=== PATIENT | male | born 1950 | race Two or more races ===

== ENCOUNTER → 2018-08-03 | Day surgery (SDC) | payer OTHER, MEDICARE ==
[~2018-08-03] MED LIST: AMLODIPINE BESYL5 MG PO; FENTANYL CITRATE/PF 100MCG/2 ML INJ ONE; FLOMAX0.4 MG PO; HYDROCHLOROTHIAZIDE PO; METOPROLOL SUCC50 MG PO; MIDAZOLAM HCL 2 MG/2 ML VIAL ONE; OR PHACO EYE KIT ONE; PREOP PHACO EYE KIT ONE; TESTOSTERO200 MG/1 M INJ
--- OUTSIDE RECORDS SUMMARY | 2018-08-03 08:44 | XMS REPORT ---
Author Author [facility] [place] Address Unknown Phone Unavailable Care Team Providers Care Teletypewriter Operator Name Role Phone Unavailable Unavailable Problems This patient has no known problems. Allergies, Adverse Reactions, Alerts This patient has no known allergies or adverse reactions. Medications This patient has no known medications. Encounters Start Date/Time End Date/Time Encounter Type Admission Type Attending Clinicians Care Facility Care Department Encounter ID 2018-05-26 14:13:13 2018-05-26 14:13:13 Outpatient [facility] [id number] 2018-04-23 00:00:00 2018-04-23 00:00:00 Outpatient [facility] [id number] 2018-04-10 20:08:25 2018-04-10 20:08:25 Outpatient [facility] [id number] 2018-04-10 20:03:54 2018-04-10 20:03:54 Outpatient [facility] [id number] 2018-04-10 11:31:15 2018-04-10 11:31:15 Outpatient [facility] [id number]
--- OUTSIDE RECORDS SUMMARY | 2018-08-03 08:44 | XMS REPORT | Clinical Summary ---
Author Author [facility] Organization [facility] Address Unknown Phone Unavailable Care Team Providers Care Interventional Neuroradiologist Name Role Phone Campbell Ascencio MD PCP Allergies Comments Active Allergy Reactions Severity Noted Date Felipe Inhibitors Swelling 04/10/2018 Medications No known medications Active Problems No known active problems Resolved Problems Problem Noted Date Resolved Date At risk for airway obstruction 04/10/2018 04/11/2018 Uvulitis 04/10/2018 04/11/2018 Pharyngotonsillitis 04/10/2018 04/11/2018 Cervical lymphadenopathy 04/10/2018 04/11/2018 Odynophagia 04/10/2018 04/11/2018 Angio-edema 04/11/2018 Encounters Care Team Description Date Type Specialty Campbell Ascencio MD Essential hypertension (Primary Dx); Elevated random blood glucose level: no history of diabetes, advised to follow up with pcp 05/26/2018 Office Visit Family Practice 05/26/2018 Travel Alan Pretty MD Bernstam, Elmer V, MD Angioedema, initial encounter (Primary Dx); Uvulitis; Pharyngotonsillitis; Cervical lymphadenopathy; Odynophagia 04/10/2018 Emergency - 04/11/2018 04/10/2018 Travel after 08/02/2017 Family History Medical History Relation Name Comments Diabetes Father Diabetes Mother Relation Name Status Comments Father Mother Social History Date Tobacco Use Types Packs/Day Years Used Never Smoker Smokeless Tobacco: Never Used Alcohol Use Drinks/Week oz/Week Comments Yes Sex Assigned at Date Recorded Not on file Industry Job Start Date Occupation Not on file Not on file Not on file Travel End Travel History Travel Start No recent travel history available. Last Filed Vital Signs Time Taken Vital Sign Reading 05/26/2018 2:13 PM PLATING TANK OPERATOR APPRENTICE Blood Pressure 109/62 05/26/2018 2:13 PM PLATING TANK OPERATOR APPRENTICE Pulse 76 05/26/2018 2:13 PM PLATING TANK OPERATOR APPRENTICE Temperature 36.9 C (98.4 F) 05/26/2018 2:13 PM PLATING TANK OPERATOR APPRENTICE Respiratory Rate 20 04/11/2018 7:15 PM PLATING TANK OPERATOR APPRENTICE Oxygen Saturation 97% - Inhaled Oxygen - Concentration 05/26/2018 2:13 PM PLATING TANK OPERATOR APPRENTICE Weight 112.1 kg (247 lb 3.2 oz) 05/26/2018 2:13 PM PLATING TANK OPERATOR APPRENTICE Height 190.5 cm (6' 3") 05/26/2018 2:13 PM PLATING TANK OPERATOR APPRENTICE Body Mass Index 30.9 Plan of Treatment Health Maintenance Due Date Last Done Comments Colorectal Cancer Scrn 2002 Annual (FIT/FOBT) Age 50 to 75 IMM Pneumococcal Age 65 2017 and Up IMM Influenza Seasonal 02/01/2018Feb to July (>/=19 yrs) Procedures Comments Procedure Name Priority Date/Time Associated Diagnosis RESP VIRAL SCREEN STAT 04/11/2018 11:50 AM PLATING TANK OPERATOR APPRENTICE INFUSION PUMP Routine 04/11/2018 11:21 AM PLATING TANK OPERATOR APPRENTICE PT/INR Routine 04/11/2018 4:23 AM PLATING TANK OPERATOR APPRENTICE MAGNESIUM Routine 04/11/2018 4:23 AM PLATING TANK OPERATOR APPRENTICE PHOSPHORUS Routine 04/11/2018 4:23 AM PLATING TANK OPERATOR APPRENTICE COMPREHENSIVE METABOLIC Routine 04/11/2018 PANEL(DBIL NOT INCLUDED) 4:23 AM PLATING TANK OPERATOR APPRENTICE CBC/DIFF Routine 04/11/2018 4:23 AM PLATING TANK OPERATOR APPRENTICE URINE DRUG SCREEN STAT 04/10/2018 10:47 PM PLATING TANK OPERATOR APPRENTICE THROAT CULTURE Routine 04/10/2018 10:18 PM PLATING TANK OPERATOR APPRENTICE GROUP A STREP SCREEN Routine 04/10/2018 10:18 PM PLATING TANK OPERATOR APPRENTICE CRP, HIGH SENS Routine 04/10/2018 9:41 PM PLATING TANK OPERATOR APPRENTICE SED RATE Routine 04/10/2018 9:41 PM PLATING TANK OPERATOR APPRENTICE 12 LEAD EKG Routine 04/10/2018 9:37 PM PLATING TANK OPERATOR APPRENTICE SEQUENTIAL COMPRESSION Routine 04/10/2018 PUMP 9:18 PM PLATING TANK OPERATOR APPRENTICE CT SOFT TISSUE NECK W Routine 04/10/2018 Uvulitis CONTRAST 8:23 PM PLATING TANK OPERATOR APPRENTICE Pharyngotonsillitis Cervical lymphadenopathy Odynophagia XRAY CHEST 2 VIEWS STAT 04/10/2018 Angioedema, initial 8:18 PM PLATING TANK OPERATOR APPRENTICE encounter SEQUENTIAL COMPRESSION Routine 04/10/2018 PUMP 6:39 PM PLATING TANK OPERATOR APPRENTICE BMP POC Routine 04/10/2018 11:35 AM PLATING TANK OPERATOR APPRENTICE CBC/DIFF STAT 04/10/2018 11:35 AM PLATING TANK OPERATOR APPRENTICE after 08/02/2017 Results * RESP VIRAL SCREEN (04/11/2018 11:50 AM PLATING TANK OPERATOR APPRENTICE) Spec Sputum [facility] Description MICROBIOLOGY Order Comments None [facility] MICROBIOLOGY Direct Exam Negative for Adenovirus [facility] MICROBIOLOGY Negative for Influenza A virus Negative for Influenza B virus Negative for Parainfluenza (1,2,3) virus Negative for Respiratory Syncytial virus Report Status Final 04/12/2018 [facility] MICROBIOLOGY Specimen Sputum - SPUTUM Performing Organization Address City/State/Zipcode Phone Number [facility] MICROBIOLOGY [facility] MICRO[facility]OLOG[facility] * COMPREHENSIVE METABOLIC PANEL(DBIL NOT INCLUDED) (04/11/2018 4:23 AM PLATING TANK OPERATOR APPRENTICE) Albumin 3.1 (L) 3.4 - 5.0 g/dL [facility]-ST[facility] 1 Calcium 8.3 (L) 8.50 - 10.20 mg/dL [facility] 1 CO2 24 21 - 32 mmol/L [facility] 1 Chloride 102 98 - 107 mmol/L [facility] MAIN-STATION 1 Creatinine 0.98 0.60 - 1.30 mg/dL [facility] MAIN-ST[facility] 1 Glucose 172 (H) 70 - 99 mg/dL [facility]IN-STATION 1 Alk Phos 44 (L) 45 - 117 U/L [facility] MAIN-ST[facility] 1 Potassium 3.5 3.50 - 5.10 mmol/L [facility]IN-STATION 1 Sodium 139 136 - 145 mmol/L [facility] 1 ALT 32 12 - 78 U/L [facility] 1 AST 17 15 - 37 U/L [facility] 1 Urea Nitrogen 19 (H) 7 - 18 mg/dL [facility] 1 T Bilirubin 0.4 0.2 - 1.0 mg/dL [facility]ST[facility] 1 T Protein 6.9 6.4 - 8.2 g/dL [facility] MA[facility] 1 GFR, Estimated >60 mL/min/1.73 m2 [facility] MAIN-[facility] 1 GFR, Estim, >60 mL/min/1.73 m2 [facility] Afr-Am MAIN-STATION 1 Anion Gap 13 [facility] 1 Specimen Blood Performing Organization Address [facility] Phone Number [facility]-STATION 1 * PT/INR (04/11/2018 4:23 AM PLATING TANK OPERATOR APPRENTICE) PT 13.6 11.8 - 15.0 Seconds [facility] MA[facility] 2 INR 1.1 [facility] SUGGESTED THERAPEUTIC RANGES: MAIN-STATION 2 INR 2.0-3.0 for MODERATE INTENSITY ANTICOAGULATION INR 2.5-3.5 for HIGH INTENSITY ANTICOAGULATION Specimen Blood Performing Organization Address [facility] Phone Number [facility] MA[facility]-STATION 2 * PHOSPHORUS (04/11/2018 4:23 AM PLATING TANK OPERATOR APPRENTICE) Phosphorus 1.9 (L) 2.5 - 4.9 mg/dL [facility] MA[facility] 1 Specimen Blood Performing Organization Address [facility] Phone Number [facility] MAIN-STATION 1 * MAGNESIUM (04/11/2018 4:23 AM PLATING TANK OPERATOR APPRENTICE) Magnesium 2.3 1.8 - 2.4 mg/dL [facility] MA[facility]ATION 1 Specimen Blood Performing Organization Address [facility] Phone Number [facility] MA[facility]ATION 1 * CBC/DIFF (04/11/2018 4:23 AM PLATING TANK OPERATOR APPRENTICE) Only the most recent of 2 results within the time period is included. WBC 7.4 4.5 - 12.0 K/uL [facility] 2 RBC 4.48 (L) 4.60 - 6.20 M/uL [facility] 2 Hemoglobin 13.9 (L) 14.0 - 18.0 g/dL [facility] 2 Hematocrit 43.0 40.0 - 54.0 % [facility] MA[facility] 2 MCV 96 (H) 82 - 92 fL [facility] 2 MCH 31.0 27.0 - 31.0 pg [facility] MA[facility] 2 MCHC 32.3 32.0 - 36.0 g/dL [facility] MA[facility] 2 RDW 49.3 (H) 35.1 - 43.9 fL [facility] 2 Platelet 210 150 - 400 K/uL [facility] 2 Mean Platelet 9.8 9.4 - 12.4 fL [facility] Volume MAIN[facility] 2 Percent NRBC 0.0 [facility] 2 Absolute NRBC 0.00 [facility] 2 Neutrophil 84.3 (H) 34.0 - 67.9 % [facility] 2 Lymphocyte 11.4 (L) 21.8 - 50.0 % [facility] 2 Monocyte 3.8 (L) 5.3 - 12.0 % [facility] 2 Eosinophil 0.0 (L) 0.8 - 5.0 % [facility] 2 Basophil 0.1 (L) 0.2 - 1.2 % [facility] 2 Pct Immat Gran 0.4 0.0 - 0.5 [facility] 2 Neutrophil, Abs 6.23 (H) 1.78 - 5.36 K/uL [facility] 2 Lymphocyte, Abs 0.84 (L) 1.32 - 3.57 K/uL [facility] 2 Monocyte, Abs 0.28 (L) 0.30 - 0.82 K/uL [facility] 2 Eosinophil, Abs 0.00 (L) 0.04 - 0.54 K/uL [facility] 2 Basophil, Abs 0.01 0.01 - 0.08 K/uL [facility] 2 Absol Immat 0.03 0.00 - 0.03 K/uL [facility] Gran [facility] 2 Specimen Blood Performing Organization Address City/State/Zipcode Phone Number [facility]YS [facility] MAIN-STATION 2 * URINE DRUG SCREEN (04/10/2018 10:47 PM PLATING TANK OPERATOR APPRENTICE) Amphetamine Negative [facility] Comment: MAIN-STATION 1 Calibrated Standard: D-Methamphetamine Positive if urine level >bq=2233 ng/mL Barbiturate Negative [facility] Comment: MAIN-STATION 1 Calibrated Standard: Secobarbital Positive if urine level is >vy=347 ng/mL Benzodiazepine Negative NE[facility] Comment: MAIN-STATION 1 Calibrated Standard: Lormethazepam Positive if urine level is >dw=070 ng/mL Cannabinoid Negative [facility] Comment: MAIN-STATION 1 Calibrated Standard: 11 nor-delta(9)-THC carboxylic a Positive if urine level >or=50 Cocaine Negative NE[facility] Comment: MAIN-STATION 1 Calibrated Standard: Benzoylecgonine Positive if urine level >bv=755 Opiate, Ur Negative [facility] Comment: MAIN[facility]STATION 1 Calibrated Standard: Morphine Positive if urine level >vi=550 PCP Negative [facility] Comment: MAIN-STATION 1 Calibrated Standard: Phencyclidine Positive if urine level >or=25 Urine Toxicology Screen results are to be used only for Medical purposes. Specimen Urine Performing Organization Address [facility] Phone Number [facility] MAIN-ST[facility] 1 * GROUP A STREP SCREEN (04/10/2018 10:18 PM PLATING TANK OPERATOR APPRENTICE) Group A Strep Negative NEG [facility] 2 Specimen Other (Specify in Comments) - THROAT Performing Organization Address [facility] Phone Number [facility] MA[facility] 2 * THROAT CULTURE (04/10/2018 10:18 PM PLATING TANK OPERATOR APPRENTICE) Spec Throat swab [facility] Description MICROBIOLOGY Order Comments None [facility] MICROBIOLOGY Culture Normal lynette, no Beta [facility] MICROBIOLOGY Streptococcus isolated Report Status Final 04/13/2018 [facility] MICROBIOLOGY Specimen Throat Performing Organization Address [facility] Phone Number [facility] MICROBIOLOGY [facility] MICROBIOLOGY * CRP, HIGH SENS (04/10/2018 9:41 PM PLATING TANK OPERATOR APPRENTICE) CRP, high sens 11.264 (H) <1.0 mg/dL [facility] MAIN-STATION 1 Specimen Blood Performing Organization Address [facility] Phone Number MISYS [facility] MAIN-STATION 1 * SED RATE (04/10/2018 9:41 PM PLATING TANK OPERATOR APPRENTICE) Sed Rate 31 (H) <20 mm/Hr [facility]IN[facility]ST[facility] 2 Specimen Blood Performing Organization Address [facility] Phone Number [facility] MAIN-ST[facility] 2 * 12 LEAD EKG (04/10/2018 9:37 PM PLATING TANK OPERATOR APPRENTICE) 12 LEAD EKG FOR [facility] Date:2018-04-10 Pat Name: CONNIE STORY Department: [id number] Room: Gender: M Drill Press Operator For Metal: [id number] :[id number] Requested By: OPAL MAGDALENO Order Number: [id number] Reading MD: Thierno TORRES Measurements Intervals [place] Rate: 88 P:70 [place]: 176 QRS: -20 QRSD: 101 T: -28 QT: 370 QTc:449 Interpretive Statements SINUS RHYTHM VOLTAGE CRITERIA FOR LVH MODERATE T-WAVE ABNORMALITY, CONSIDER ANTERIOR ISCHEMIA/INJURY/INFARCTION Suggest clinical correlation Abnormal ECG No prior ECG available for comparison Electronically Signed On 04-11-2018 8:14:56 PLATING TANK OPERATOR APPRENTICE by Thierno TORRES Performing Organization Address City/State/Zipcode Phone Number SMS * CT SOFT TISSUE NECK W CONTRAST (04/10/2018 8:23 PM PLATING TANK OPERATOR APPRENTICE) Impressions Performed At IMPRESSION: SMS Edema of the uvula. Mild submucosal edema adjacent to the posterior wall the supraglottic airway more prominent on the left. Asymmetric thickening in the left piriform sinus. Recommend direct inspection/anterior consultation. No pathologic-appearing cervical lymphadenopathy. Focal cortical dehiscence in the left anterior maxillary and the region of absent/ extracted teeth. Suggestion of a small thyroglossal duct remnant lesion. Signed By: Jelani Villasenor MD, 04/11/2018 10:18 AM Narrative Performed At EXAM: CT NECK WITH CONTRAST SMS DATE: 04/10/2018 8:25 PM INDICATION: Acute throat pain, uvula swelling TECHNIQUE: 2.5 mm contiguous axial postcontrast imaging was acquired from the level the orbits through the thoracic inlet. Coronal and sagittal reformatted images are provided. DLP: 770.6mGy-cm COMPARISON: None. DISCUSSION: Edema/swelling of the uvula. Mild submucosal edema adjacent to the posterior wall the supraglottic airway more prominent on the left. No peritonsillar or retropharyngeal collection. Asymmetric thickening along the left piriform sinus and at the base of the aryepiglottic fold. Focal lingual and buccal cortical dehiscence of the left maxillary and the region of absent/extracted lateral incisor/canine. Mild periapical lucency at the roots of the left central maxillary incisor. Mucosal thickening in the right maxillary sinus, otherwise the imaged portions of the paranasal sinuses and mastoid air cells are predominantly clear. No pathologically appearing cervical lymphadenopathy. Diffuse degenerative changes in the cervical spine and marked upper thoracic levoscoliosis. Imaged portions of the upper lungs are clear. Thyroid, parotid, and submandibular glands are unremarkable. Focal soft tissue thickening in the midline beneath the hyoid bone may relate to a thyroglossal duct remnant lesion. Procedure Note Interface, Rad/Mammog In - 04/11/2018 10:23 AM PLATING TANK OPERATOR APPRENTICE EXAM: CT NECK WITH CONTRAST DATE: 04/10/2018 8:25 PM INDICATION: Acute throat pain, uvula swelling TECHNIQUE: 2.5 mm contiguous axial postcontrast imaging was acquired from the level the orbits through the thoracic inlet. Coronal and sagittal reformatted images are provided. DLP: 770.6mGy-cm COMPARISON: None. DISCUSSION: Edema/swelling of the uvula. Mild submucosal edema adjacent to the posterior wall the supraglottic airway more prominent on the left. No peritonsillar or retropharyngeal collection. Asymmetric thickening along the left piriform sinus and at the base of the aryepiglottic fold. Focal lingual and buccal cortical dehiscence of the left maxillary and the region of absent/extracted lateral incisor/canine. Mild periapical lucency at the roots of the left central maxillary incisor. Mucosal thickening in the right maxillary sinus, otherwise the imaged portions of the paranasal sinuses and mastoid air cells are predominantly clear. No pathologically appearing cervical lymphadenopathy. Diffuse degenerative changes in the cervical spine and marked upper thoracic levoscoliosis. Imaged portions of the upper lungs are clear. Thyroid, parotid, and submandibular glands are unremarkable. Focal soft tissue thickening in the midline beneath the hyoid bone may relate to a thyroglossal duct remnant lesion. IMPRESSION IMPRESSION: Edema of the uvula. Mild submucosal edema adjacent to the posterior wall the supraglottic airway more prominent on the left. Asymmetric thickening in the left piriform sinus. Recommend direct inspection/anterior consultation. No pathologic-appearing cervical lymphadenopathy. Focal cortical dehiscence in the left anterior maxillary and the region of absent/ extracted teeth. Suggestion of a small thyroglossal duct remnant lesion. Signed By: Jelani Villasenor MD, 04/11/2018 10:18 AM Performing Organization Address City/State/Zipcode Phone Number SMS * XRAY CHEST 2 VIEWS (04/10/2018 8:18 PM PLATING TANK OPERATOR APPRENTICE) Impressions Performed At IMPRESSION: SMS No acute process in the chest. Marked dextroscoliosis involving the mid thoracic spine. Signed By: oTnya Messina MD, 04/10/2018 8:20 PM Narrative Performed At EXAM: XR CHEST 2 VIEWS [facility] DATE: 04/10/2018 8:19 PM . INDICATION: pneumonia COMPARISON: None TECHNIQUE:PAand lateral chest radiographs DISCUSSION: There is marked dextroscoliosis involving the mid thoracic spine. Lungs are clear with minimal atelectasis in the left lung base. No pleural effusions. No hilar adenopathy. The heart size is normal. No acute bony abnormality is identified. There is unfolding of the aortic arch. Procedure Note Interface, Rad/Mammog In - 04/10/2018 8:25 PM PLATING TANK OPERATOR APPRENTICE EXAM: XR CHEST 2 VIEWS DATE: 04/10/2018 8:19 PM . INDICATION: pneumonia COMPARISON: None TECHNIQUE: PA and lateral chest radiographs DISCUSSION: There is marked dextroscoliosis involving the mid thoracic spine. Lungs are clear with minimal atelectasis in the left lung base. No pleural effusions. No hilar adenopathy. The heart size is normal. No acute bony abnormality is identified. There is unfolding of the aortic arch. IMPRESSION IMPRESSION: No acute process in the chest. Marked dextroscoliosis involving the mid thoracic spine. Signed By: Tonya Messina MD, 04/10/2018 8:20 PM Performing Organization Address City/State/Zipcode Phone Number SMS * BMP POC (04/10/2018 11:35 AM PLATING TANK OPERATOR APPRENTICE) CO2 POC 31 21 - 32 mmol/L [facility] MAIN-[facility] 1 Chloride POC 97 (L) 98 - 107 mmol/L [facility] 1 Potassium POC 3.6 3.50 - 5.10 mmol/L [facility] MA[facility] 1 Sodium POC 143 136 - 145 mmol/L [facility] MA[facility] 1 Glucose POC 108 (H) 74 - 106 mg/dL [facility] MAIN-STATION 1 Urea Nitrogen 11 7 - 18 mg/dL [facility] POC MAIN-STATION 1 Creatinine POC 0.8 0.6 - 1.3 mg/dL [facility] MAIN-STATION 1 Calcium Ionized 1.15 1.15 - 1.29 mmol/L [facility] POC MAIN-STATION 1 Hemoglobin POC 16.3 14.0 - 18.0 g/dL [facility] MA[facility] 1 Hematocrit POC 48.0 40.0 - 54.0 % [facility] MAIN-STATION 1 GFR, Estimated >60 mL/min/1.73 m2 [facility] MAIN-STATION 1 GFR, Estim, >60 mL/min/1.73 m2 [facility] Afr-Am MAIN-STATION 1 Performing Organization Address City/State/Zipcode Phone Number [facility] 1 after 08/02/2017 Insurance Type Payer Benefit Subscriber ID Effective Phone Address Plan / Dates Group MEDICARE MEDICARE xxxxxxxxxxx 2017- [phone] [address] Present [id number] [place] [address] (Home) [place] [address] Advance Directives For more information, please contact: [address] [address] Date Inactivated Comments Code Status Date Activated 04/12/2018 12:01 AM Full Code 04/10/2018 5:49 PM
--- OUTSIDE RECORDS SUMMARY | 2018-08-03 08:44 | XMS REPORT ---
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 Completed 07/28/2017 diazepam 5 mg tablet Completed 06/09/2016 hydrochlorothiazide 25 mg tablet take 1 tablet once a day Active Not available hydrocodone 7.5 mg-acetaminophen 325 mg tablet Completed 06/09/2016 tamsulosin 0.4 mg capsule TAKE ONE CAPSULE ONCE A DAY Active Not available testosterone cypionate 200 mg/mL intramuscular oil Inject 1 mL every 2 weeks by intramuscular route for 90 days. 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 History Neck Pain Active 10/18/2015 History Lower Urinary Tract Symptoms Due to Benign Prostatic Hypertrophy Active 10/18/2015 History Procedures Date Name Performed by 08/11/2016 Electrocardiogram [facility] [address] [facility] [address] [place] [address] (Work Place) Notes: 10/24/2015: Repair navel hernia; Surgery Date: 2015 Inguinal Hernia repair; Surgery Date: 1979 Lab Results Date Name Specimen Result Interpretation Description Value Range Status Address 01/27/2017 Hepatitis C Virus RNA, Quant, PCR, Serum or Plasma Normal Hepatitis C Antibody non-reactive non-reactive [facility]: [address] Normal Signal to Cut-off 0.60 <1.00 [facility]: [address] [place] 01/27/2017 CBC W/ Auto Diff Wbc 4.53 x10*3/L 4.23-9.07 x10*3/L [facility]: [address] [place] Low Rbc 4.49 10*12/L 4.63-6.08 10*12/L [facility] [address] [facility] Hem[facility] 14.30 g/dL 13.70-17.50 g/dL [facility]: [address] [place] Hematocrit 42.8 % 40.1-51.0 % [facility] [address] [facility] Mcv 95.3 fL 80.0-100.0 fL [facility] [address] [facility] Mch 31.8 pg 25.7-32.2 pg [facility] [address] [facility] Mchc 33.4 g/dL 32.3-36.5 g/dL [facility]: [address] [place] High RDW-SD 46.5 fL 35.1-43.9 fL [facility] [address] [facility] Platelet Count 222.0 k/uL 163.0-337.0 k/uL [facility] [address] [facility] Mpv 10.5 fL 7.5-11.5 fL [facility] [address] [facility] Neut% 38.9 % 34.0-67.9 % [facility] [address] [facility] [facility] Lymph% 45.9 % 21.8-53.1 % [facility]: [address] [facility] Mon% 11.9 % 5.3-12.2 % [facility] [address] [facility] Eos% 2.9 % 0.8-7.0 % [facility] [address] [facility] [facility] Baso% 0.4 % 0.2-1.2 % [facility]: [address] [place] Neut# 1.8 x10*3/L 1.8-5.4 x10*3/L [facility]: [address] [place] Lymph# 2.1 x10*3/L 1.3-3.6 x10*3/L [facility]: [address] [facility] [place] Mon# 0.5 x10*3/L 0.3-0.8 x10*3/L [facility]: [address] Peters [facility] [place] Eos# 0.13 x10*3/L 0.04-0.54 x10*3/L [facility]: [address] [facility] [place] Baso# 0.02 x10*3/L 0.01-0.08 x10*3/L [facility] [address] [facility] 01/27/2017 CMP, Serum or Plasma Alt 27 U/L 0-55 U/L [facility]: [address] Ast 19 U/L 5-34 U/L [facility]: [address] Bun 12.8 mg/dL 8.4-25.7 mg/dL [facility]: [address] Alk Phos 43 unit/L 40-150 unit/L [facility]: [address] Glucose 96 mg/dL 70-99 mg/dL [facility]: [address] Albumin 3.8 g/dL 3.5-5.0 g/dL [facility]: [address] Creatinine 0.81 mg/dL 0.72-1.25 mg/dL [facility]: [address] eGFR Non- >60 mL/min/1.73m2 >60 mL/min/1.73m2 [facility]: [address] Total Bilirubin 0.4 mg/dL 0.2-1.2 mg/dL [facility]: [address] eGFR - >60 mL/min/1.73m2 >60 mL/min/1.73m2 [facility]: [address] [place] [address], [place] Sodium 143 mEq/L 136-145 mEq/L [facility]: [address] Potassium 3.9 mEq/L 3.5-5.1 mEq/L [facility]: [address] [place] [address], [place] Chloride 105 mmol/L 98-107 mmol/L [facility]: [address] [place] [address], [place] Total Protein 7.2 g/dL 6.4-8.3 g/dL [facility]: [address] Calcium 9.1 mg/dL 8.8-10.0 mg/dL [facility]: [address] Co2 26.0 mmol/L 23.0-31.0 mmol/L [facility]: [address] Anion Gap 12 calc [facility]: [address] [place] [address], [place] 01/27/2017 Lipid Panel, Serum Low Hdl 38 mg/dL 40-60 mg/dL [facility]: [address] Triglyceride 46 mg/dL 0-149 mg/dL [facility]: [address] VLDL Calc. 9 mg/dL [facility]: [address] cholesterol/HDL Ratio 4.2 mg/dL [facility]: [address] non-HDL Cholesterol Calc. 121 mg/dL 0-160 mg/dL [facility]: [address] Cholesterol 159 mg/dL 0-199 mg/dL [facility]: [address] LDL Calc. 112 mg/dL 0-130 mg/dL [facility]: [address] [place] [address], [place] 01/27/2017 T4, Free, Serum T4 Free 0.97 NG/dL 0.70-1.48 NG/dL [facility]: [address] 01/27/2017 TSH, Serum or Plasma Tsh 0.756 uIU/mL 0.350-4.940 uIU/mL [facility]: [address] [place] [address], [place] 01/27/2017 PSA, Serum or Plasma PSA, Total 3.93 NG/mL <4.00 NG/mL [facility]: [address] [place] [address], [place] 01/27/2017 Testosterone, Total, Serum Low Testosterone, Total 220.00 NG/dL 220.91-715.81 NG/dL [facility]: [address] [place] [address], [place] 08/13/2016 Fecal Occult Blood, Stool Fecal Globin by Immunochemistry not detected [facility]: [address] [place] [address], [place] 08/11/2016 CBC W/ Auto Diff Normal White Blood Cell Count 6.7 thousand/uL 3.8-10.8 thousand/uL [facility]: 70 [facility], [place] Normal Red Blood Cell Count 4.97 million/uL 4.20-5.80 million/uL [facility]: 70 [facility], [place] Normal Hemoglobin 15.3 g/dL 13.2-17.1 g/dL [facility]: 70 [facility], [place] Normal Hematocrit 46.4 % 38.5-50.0 % [facility]: 70 [facility], [place] Normal Mcv 93.3 fL 80.0-100.0 fL [facility]: 70 [facility], [place] Normal Mch 30.8 pg 27.0-33.0 pg [facility] 70 [facility] [place] Normal Mchc 33.0 g/dL 32.0-36.0 g/dL [facility] 70 [facility] [place] Normal Rdw 14.7 % 11.0-15.0 % [facility]: [address], [place] Normal Platelet Count 220 thousand/uL 140-400 thousand/uL [facility]: 70 [facility], [place] Normal Mpv 9.0 fL 7.5-12.5 fL [facility]: [address], [place] Normal Absolute Neutrophils 5246 cells/uL 2131-6122 cells/uL [facility]: [address], [place] Low Absolute Lymphocytes 791 cells/uL 850-3900 cells/uL [facility]: [address], [place] Normal Absolute Monocytes 255 cells/uL 200-950 cells/uL [facility]: [address], [place] Normal Absolute Eosinophils 402 cells/uL 15-500 cells/uL [facility]: [address], [place] Normal Absolute Basophils 7 cells/uL 0-200 cells/uL [facility]: [address], [place] Normal Neutrophils 78.3 % [facility]: [address], [place] Normal Lymphocytes 11.8 % [facility]: [address], [place] Normal Monocytes 3.8 % [facility]: [facility] [address], [place] Normal Eosinophils 6.0 % [facility]: [facility] [address], [place] Normal Basophils 0.1 % [facility]: [address], [place] 08/11/2016 CBC W/ Auto Diff Normal White Blood Cell Count 6.7 thousand/uL 3.8-10.8 thousand/uL [facility]: [address] [place] [address] Normal Red Blood Cell Count 4.97 million/uL 4.20-5.80 million/uL [facility] [address] [facility] Hemoglobin 15.3 g/dL 13.2-17.1 g/dL [facility]: [address] [facility] Normal Hematocrit 46.4 % 38.5-50.0 % [facility]: [address] [facility] Normal Mcv 93.3 fL 80.0-100.0 fL [facility]: [address] [facility] Normal Mch 30.8 pg 27.0-33.0 pg [facility]: [address] [facility] Normal Mchc 33.0 g/dL 32.0-36.0 g/dL [facility]: [address] [place] Normal Rdw 14.7 % 11.0-15.0 % [facility]: [address] [place] Normal Platelet Count 220 thousand/uL 140-400 thousand/uL [facility]: [address] [place] Normal Mpv 9.0 fL 7.5-12.5 fL [facility]: [address] [place] Normal Absolute Neutrophils 5246 cells/uL 0010-2832 cells/uL [facility]: [address] [place] Low Absolute Lymphocytes 791 cells/uL 850-3900 cells/uL [facility]: [address] [place] Normal Absolute Monocytes 255 cells/uL 200-950 cells/uL [facility]: [address] [place] [address] Normal Absolute Eosinophils 402 cells/uL 15-500 cells/uL [facility]: [address] Normal Absolute Basophils 7 cells/uL 0-200 cells/uL [facility]: [address] [place] [address] Normal Neutrophils 78.3 % [facility]: [address] Normal Lymphocytes 11.8 % [facility]: [address] [facility] [place] Normal Monocytes 3.8 % [facility]: [address] [place] [address] Normal Eosinophils 6.0 % [facility]: [address] Normal Basophils 0.1 % [facility] [address] [facility] 08/11/2016 CMP, Serum or Plasma Alt 32 U/L 0-55 U/L [facility]: [address] Ast 22 U/L 5-34 U/L [facility]: [address] Peters [address] [place] [address] Bun 12 mg/dL 8-26 mg/dL [facility]: [address] Alk Phos 52 unit/L 40-150 unit/L [facility]: [address] High Glucose 103 mg/dL 70-99 mg/dL [facility]: [address] Albumin 4.3 g/dL 3.5-5.0 g/dL [facility]: [address], [place] Creatinine 0.90 mg/dL 0.72-1.25 mg/dL [facility]: [address], [place] eGFR Non- >60 mL/min/1.73m2 >60 mL/min/1.73m2 [facility]: [address] Total Bilirubin 0.7 mg/dL 0.2-1.2 mg/dL [facility]: [address] [place] [address] eGFR - >60 mL/min/1.73m2 >60 mL/min/1.73m2 [facility]: [address] [facility] High Sodium 147 mEq/L 137-144 mEq/L [facility]: [address] Potassium 4.0 mEq/L 3.5-5.0 mEq/L [facility]: [address] Chloride 107 mmol/L 101-110 mmol/L [facility]: [address] [place] [address], [place] Total Protein 8.1 g/dL 6.4-8.3 g/dL [facility]: [address] [facility] Calcium 9.4 mg/dL 8.4-10.2 mg/dL [facility]: [address] [place] [address] Co2 28.4 mmol/L 22.0-31.0 mmol/L [facility]: [address] Anion Gap 12 calc [facility]: [address] Ramirez, [place] 08/11/2016 Lipid Panel, Serum Hdl 43 mg/dL 40-60 mg/dL [facility]: [address], [place] Triglyceride 58 mg/dL 0-149 mg/dL [facility]: [address] [place] [address], [place] VLDL Calc. 12 mg/dL [facility]: [address] cholesterol/HDL Ratio 4 mg/dL [facility]: [address] non-HDL Cholesterol Calc. 120 mg/dL 0-160 mg/dL [facility]: [address] Cholesterol 163 mg/dL 0-199 mg/dL [facility]: [address] LDL Calc. 108 mg/dL 0-130 mg/dL [facility]: [address] 08/11/2016 PSA, Serum or Plasma High PSA, Total 5.86 NG/mL <4.00 NG/mL [facility]: [address] [place] [address], [place] Albumin:creatinine Ratio, Urine Type Urine Microlalbumin 30 mg/L [facility]: [address] [facility] [address], [place] Type Urine Creatinine 100 mg/dL [facility]: [address] [facility] [address], [place] Type A:C Ratio <30 mg/g (Normal) [facility]: [address] [facility] [address], [place] Urinalysis, Dipstick Color Color light yellow [facility]: [address] [facility] [address], [place] Color Appearance clear [facility]: [address] [facility] [address], [place] Color Glucose negative [facility]: [address] [facility] [address], [place] Color Bilirubin negative [facility]: [address] [facility] [address], [place] Color Ketones negative [facility]: [address] [facility] [address], [place] Color Specific [place] 1.020 [facility]: [address] [facility] [address], [place] Color Blood trace [facility]: [address] [facility] [address], [place] Color PH 5.5 [facility]: [address] [facility] [address], [place] Color Protein negative [facility]: [address] [facility] [address], [place] Color Urobilinogen 0.2 [facility]: [address] [facility] [address], [place] Color Nitrites negative [facility]: [address] [facility] [address], [place] Color Leukocytes negative [facility]: [address] [facility] [address], [place] Electrocardiogram No observation recorded. [facility]: [address] [place] [address], [place] Past Encounters 07/28/2017 Hypertensive Heart Disease; Immunization; Lower Urinary Tract Symptoms Due to Benign Prostatic Hypertrophy TAMIA Garcia: [id number] [place] [address], [facility] [address] [address], Ph. 02/16/2017 Allergic Reaction to Insect Bite IAN Ambriz: [address] [place] [phone], Ph. 02/03/2017 Testicular Hypofunction; Hypertensive Heart Disease; Thoracogenic Scoliosis TAMIA Snider: [address] [place] [phone], Ph. 01/27/2017 Adult Health Examination; Body Mass Index 30+ - Obesity; Hypertensive Heart Disease; Testicular Hypofunction; Viral Screening; Screening for Malignant Neoplasm of Prostate; Screening for Malignant Neoplasm of Colon; Immunization; Depression Screening TAMIA Snider: [address] [place] [phone], Ph. 01/21/2017 Lower Urinary Tract Symptoms Due to Benign Prostatic Hypertrophy; Body Mass Index 30+ - Obesity TAMIA Snider: [address] [place] [phone], Ph. 08/11/2016 Hypertensive Heart Disease; Fever; Upper Respiratory Infection; Melena; Lower Urinary Tract Symptoms Due to Benign Prostatic Hypertrophy IAN Ambriz: [address] [place] [phone], Ph. 06/09/2016 Hypertensive Heart Disease; Testicular Hypofunction; Lower Urinary Tract Symptoms Due to Benign Prostatic Hypertrophy TAMIA Snider: [address] [place] [phone], Ph. Social History Smoking Status Never Smoker Vaccine List Vaccine Type influenza, injectable, quadrivalent 04/10/2015 pneumococcal conjugate PCV 13 07/28/20170.5 mL Tdap 01/27/20170.5 mL Notes: 10/18/2015: TESTOSTERONE (10/18/2015) Plan of Care Patient Instructions Increase PO fluids. Complete all antibiotics as prescribed. Call or RTC for worsening of symptoms or no improvement in 2-3 days. Reminders Provider Appointments None recorded. Lab None recorded. Referral None recorded. Procedures None recorded. Surgeries None recorded. Imaging None recorded. Vitals 07/28/2017 03:00PM Est Patient Height Weight BMI Blood Pressure 6 ft 3 in 242.4 lbs 30.3 kg/m2 (1) 144/88 mm[Hg] (2) 142/90 mm[Hg] 02/16/2017 04:00PM Work In Same Day Height Weight BMI Blood Pressure 6 ft 3 in 244.2 lbs 30.5 kg/m2 124/84 mm[Hg] 02/03/2017 08:00AM Est Patient Height Weight BMI Blood Pressure 6 ft 3 in 247 lbs 30.9 kg/m2 127/82 mm[Hg] 01/27/2017 08:00AM BRICK BURNER/EST CPX Height Weight BMI Blood Pressure 6 ft 3 in 248.2 lbs 31 kg/m2 130/72 mm[Hg] 01/21/2017 04:15PM Work In Same Day Height Weight BMI Blood Pressure 6 ft 3 in 240 lbs 30 kg/m2 134/93 mm[Hg] 08/11/2016 04:00PM Est Patient Height Weight BMI Blood Pressure 6 ft 3 in 239.4 lbs 29.9 kg/m2 (1) 178/117 mm[Hg] (2) 172/118 mm[Hg] (3) 152/94 mm[Hg] 06/09/2016 08:15AM Est Patient Height Weight BMI Blood Pressure 6 ft 3 in 248 lbs 31 kg/m2 150/110 mm[Hg] 10/24/2015 Height Weight BMI Blood Pressure 6 ft 3 in 243.4 lbs 30.42 kg/m2 126/85 mm[Hg] 10/18/2015 Height Weight BMI Blood Pressure 6 ft 3 in 246.2 lbs 30.77 kg/m2 130/88 mm[Hg] 10/02/2015 Height Weight BMI Blood Pressure 6 ft 3 in 335.6 lbs 41.94 kg/m2 144/86 mm[Hg] 09/27/2015 Height Weight BMI Blood Pressure 6 ft 3 in 240.8 lbs 30.09 kg/m2 129/90 mm[Hg] 04/10/2015 Height Weight BMI Blood Pressure 6 ft 3 in 241.2 lbs 30.14 kg/m2 128/86 mm[Hg] 09/22/2014 Height Weight BMI Blood Pressure 6 ft 3 in 240.2 lbs 30.02 kg/m2 133/72 mm[Hg] 08/18/2014 Height Weight BMI Blood Pressure 6 ft 3 in 240 lbs 29.99 kg/m2 128/80 mm[Hg] 02/24/2014 Height Weight BMI Blood Pressure 6 ft 3 in 240.4 lbs 30.04 kg/m2 114/80 mm[Hg] 11/24/2013 Height Weight 6 ft 3 in 245 lbs 10/24/2013 Height Weight 6 ft 3 in 244.2 lbs 05/16/2013 Height Weight 6 ft 3 in 239.4 lbs 10/12/2012 Height Weight 6 ft 3 in 236 lbs 09/10/2012 Height Weight 6 ft 3 in 237.2 lbs 09/07/2012 Height Weight 6 ft 3 in 235 lbs 03/02/2012 Height Weight 6 ft 3 in 233 lbs 12/03/2011 Height Weight 6 ft 3 in 238.4 lbs 12/01/2011 Height Weight 6 ft 3 in 238.4 lbs 11/14/2011 Height Weight 6 ft 3 in 240.2 lbs 05/19/2011 Height Weight 6 ft 3 in 234 lbs 05/15/2011 Height Weight 6 ft 3 in 154 lbs 05/12/2011 Height Weight 6 ft 3 in 171 lbs 05/06/2011 Height Weight 6 ft 3 in 239 lbs 04/25/2011 Height Weight 6 ft 3 in 232 lbs 04/09/2011 Height Weight 6 ft 3 in 233 lbs 03/26/2011 Height Weight 6 ft 3 in 231.8 lbs
[2018-08-03 11:45] VITALS: BP 135/89
== END | disposition home or self-care (01) ==
LOC: OR 08:41
PROVIDERS: ATTEND Ophthalmology
DX: H25.11 Age-related nuclear cataract, right eye (principal); I10 Essential (primary) hypertension; N40.0 Benign prostatic hyperplasia without lower urinary tract symptoms
CPT/HCPCS: 66984; J2250; V2632

== ENCOUNTER → 2018-08-17 | Day surgery (SDC) | payer OTHER, MEDICARE ==
--- OUTSIDE RECORDS SUMMARY | 2018-08-17 09:01 | XMS REPORT | Clinical Summary ---
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 Role Phone Campbell Ascencio MD PCP [...] 04/10/2018 Emergency - 04/11/2018 04/10/2018 Travel after 08/16/2017 Family History Medical History Relation Name Comments [...] Taken Vital Sign Reading 05/26/2018 2:13 PM API DEVELOPER Blood Pressure 109/62 05/26/2018 2:13 PM API DEVELOPER Pulse 76 05/26/2018 2:13 PM API DEVELOPER Temperature 36.9 C (98.4 F) 05/26/2018 2:13 PM API DEVELOPER Respiratory Rate 20 04/11/2018 7:15 PM API DEVELOPER Oxygen Saturation 97% - Inhaled Oxygen - Concentration 05/26/2018 2:13 PM API DEVELOPER Weight 112.1 kg (247 lb 3.2 oz) 05/26/2018 2:13 PM API DEVELOPER Height 190.5 cm (6' 3") 05/26/2018 2:13 PM API DEVELOPER Body Mass Index 30.9 Plan of Treatment Health Maintenance Due Date Last Done Comments Colorectal Cancer Scrn 2002 Annual (FIT/FOBT) Age 50 to 75 IMM Pneumococcal Age 65 2017 and Up IMM Influenza Seasonal 02/01/2019Feb to July (>/=19 yrs) Procedures Comments Procedure Name Priority Date/Time Associated Diagnosis RESP VIRAL SCREEN STAT 04/11/2018 11:50 AM API DEVELOPER INFUSION PUMP Routine 04/11/2018 11:21 AM API DEVELOPER PT/INR Routine 04/11/2018 4:23 AM API DEVELOPER MAGNESIUM Routine 04/11/2018 4:23 AM API DEVELOPER PHOSPHORUS Routine 04/11/2018 4:23 AM API DEVELOPER COMPREHENSIVE METABOLIC Routine 04/11/2018 PANEL(DBIL NOT INCLUDED) 4:23 AM API DEVELOPER CBC/DIFF Routine 04/11/2018 4:23 AM API DEVELOPER URINE DRUG SCREEN STAT 04/10/2018 10:47 PM API DEVELOPER THROAT CULTURE Routine 04/10/2018 10:18 PM API DEVELOPER GROUP A STREP SCREEN Routine 04/10/2018 10:18 PM API DEVELOPER CRP, HIGH SENS Routine 04/10/2018 9:41 PM API DEVELOPER SED RATE Routine 04/10/2018 9:41 PM API DEVELOPER 12 LEAD EKG Routine 04/10/2018 9:37 PM API DEVELOPER SEQUENTIAL COMPRESSION Routine 04/10/2018 PUMP 9:[address] SOFT TISSUE NECK W Routine 04/10/2018 Uvulitis CONTRAST 8:23 PM API DEVELOPER Pharyngotonsillitis Cervical lymphadenopathy Odynophagia XRAY CHEST 2 VIEWS STAT 04/10/2018 Angioedema, initial 8:18 PM API DEVELOPER encounter SEQUENTIAL COMPRESSION Routine 04/10/2018 PUMP 6:39 PM API DEVELOPER BMP POC Routine 04/10/2018 11:35 AM API DEVELOPER CBC/DIFF STAT 04/10/2018 11:35 AM API DEVELOPER after 08/16/2017 Results * RESP VIRAL SCREEN (04/11/2018 11:50 AM API DEVELOPER) Spec Sputum [facility] Description MICROBIOLOGY Order Comments [...] METABOLIC PANEL(DBIL NOT INCLUDED) (04/11/2018 4:23 AM API DEVELOPER) Albumin 3.1 (L) 3.4 - 5.0 g/dL [facility] MAIN-STATION 1 Calcium 8.3 (L) 8.50 - 10.20 mg/dL [facility] MAIN-STATION 1 CO2 24 21 - 32 mmol/L [facility] MAIN-STATION 1 Chloride 102 98 - 107 mmol/L J MAIN-STATION 1 Creatinine 0.98 0.60 - 1.30 mg/dL [facility] MAIN-STATION 1 Glucose 172 (H) 70 - 99 mg/dL [facility] MAIN-STATION 1 Alk Phos 44 (L) 45 - 117 U/L [facility] MAIN-STATION 1 Potassium 3.5 3.50 - 5.10 mmol/L [facility] MAIN-STATION 1 Sodium 139 136 - 145 mmol/L [facility] MAIN-STATION 1 ALT 32 12 - 78 U/L [facility] MAIN-STATION 1 AST 17 15 - 37 U/L [facility] MAIN-STATION 1 Urea Nitrogen 19 (H) 7 - 18 mg/dL [facility] MAIN-STATION 1 T Bilirubin 0.4 0.2 - 1.0 mg/dL [facility] MAIN-STATION 1 T Protein 6.9 6.4 - 8.2 g/dL [facility] MAIN-STATION 1 GFR, Estimated >60 mL/min/1.73 m2 [facility] MAIN-STATION 1 GFR, Estim, >60 mL/min/1.73 m2 [facility] Afr-Am MAIN-STATION 1 Anion Gap 13 [facility] MAIN-STATION 1 Specimen Blood Performing Organization Address [facility] Phone Number [facility] MAIN-STATION 1 * PT/INR (04/11/2018 4:23 AM API DEVELOPER) PT 13.6 11.8 - 15.0 Seconds [facility] MAIN-STATION 2 INR 1.1 [facility] SUGGESTED THERAPEUTIC RANGES: MAIN-STATION 2 INR 2.0-3.0 for MODERATE INTENSITY ANTICOAGULATION INR 2.5-3.5 for HIGH INTENSITY ANTICOAGULATION Specimen Blood Performing Organization Address [facility] Phone Number [facility] MAIN-STATION 2 * PHOSPHORUS (04/11/2018 4:23 AM API DEVELOPER) Phosphorus 1.9 (L) 2.5 - 4.9 mg/dL [facility] MAIN-STATION 1 Specimen Blood Performing Organization Address [facility] Phone Number [facility] MAIN-STATION 1 * MAGNESIUM (04/11/2018 4:23 AM API DEVELOPER) Magnesium 2.3 1.8 - 2.4 mg/dL [facility] MAIN-STATION 1 Specimen Blood Performing Organization Address [facility] Phone Number [facility] MAIN-STATION 1 * CBC/DIFF (04/11/2018 4:23 AM API DEVELOPER) Only the most recent of 2 results within the time period is included. WBC 7.4 4.5 - 12.0 K/uL [facility] MAIN-STATION 2 RBC 4.48 (L) 4.60 - 6.20 M/uL [facility] MAIN-STATION 2 Hemoglobin 13.9 (L) 14.0 - 18.0 g/dL [facility] MAIN-STATION 2 Hematocrit 43.0 40.0 - 54.0 % [facility] MAIN-STATION 2 MCV 96 (H) 82 - 92 fL [facility] MAIN-STATION 2 MCH 31.0 27.0 - 31.0 pg [facility] MAIN-STATION 2 MCHC 32.3 32.0 - 36.0 g/dL [facility] MAIN-STATION 2 RDW 49.3 (H) 35.1 - [...] 0.03 0.00 - 0.03 K/uL [facility]STATION 2 Specimen Blood Performing Organization Address City/State/Zipcode Phone Number MISYS [facility] MAIN-STATION 2 * URINE DRUG SCREEN (04/10/2018 10:47 PM API DEVELOPER) Amphetamine Negative NEG [facility] Comment: MAIN-STATION 1 Calibrated Standard: D-Methamphetamine Positive if urine level >hj=6684 ng/mL Barbiturate Negative NEG [facility] Comment: MAIN-STATION 1 Calibrated Standard: Secobarbital Positive if urine level is >nh=092 ng/mL Benzodiazepine Negative NEG [facility] Comment: MAIN-STATION 1 Calibrated Standard: Lormethazepam Positive if urine level is >nb=655 ng/mL Cannabinoid Negative NEG [facility] Comment: MAIN-STATION 1 Calibrated Standard: 11 nor-delta(9)-THC carboxylic a Positive if urine level >or=50 Cocaine Negative NEG [facility] Comment: MAIN-STATION 1 Calibrated Standard: Benzoylecgonine Positive if urine level >do=764 Opiate, Ur Negative NEG [facility] Comment: MAIN-STATION 1 Calibrated Standard: Morphine Positive if urine level >ph=872 PCP Negative NEG [facility] Comment: MAIN-STATION 1 Calibrated Standard: Phencyclidine Positive if urine level >or=25 Urine Toxicology Screen results are to be used only for Medical purposes. Specimen Urine Performing Organization Address [facility] Phone Number MISYS [facility] MAIN-STATION 1 * GROUP A STREP SCREEN (04/10/2018 10:18 PM API DEVELOPER) Group A Strep Negative NEG [facility] MAIN-STATION 2 Specimen Other (Specify in Comments) - THROAT Performing Organization Address [facility] Phone Number MISYS [facility] MAIN-STATION 2 * THROAT CULTURE (04/10/2018 10:18 PM API DEVELOPER) Spec Throat swab [facility] Description MICROBIOLOGY Order Comments None [facility] MICROBIOLOGY Culture Normal lynette, no Beta [facility] MICROBIOLOGY Streptococcus isolated Report Status Final 04/13/2018 BT MICROBIOLOGY Specimen Throat Performing Organization Address [facility] Phone Number MISYS [facility] MICROBIOLOGY BT MICROBIOLOGY * CRP, HIGH SENS (04/10/2018 9:41 PM API DEVELOPER) CRP, high sens 11.264 (H) <1.0 mg/dL [facility] MAIN-STATION 1 Specimen Blood Performing Organization Address [facility] Phone Number MISYS [facility] MAIN-STATION 1 * SED RATE (04/10/2018 9:41 PM API DEVELOPER) Sed Rate 31 (H) <20 mm/Hr [facility] MAIN-STATION 2 Specimen Blood Performing Organization Address [facility] Phone Number MISYS [facility] MAIN-STATION 2 * 12 LEAD EKG (04/10/2018 9:37 PM API DEVELOPER) 12 LEAD EKG FOR SMS [facility] Test Date:2018-04-10 Pat Name: CONNIE STORY Department: [id number] Room: Gender: M [employer] Maker: [id number] :[id number] Requested By: OPAL MAGDALENO Order Number: [id number] Reading MD: Thierno TORRES Measurements Intervals [place] Rate: 88 P:70 SC: 176 QRS: -20 QRSD: 101 T: -28 QT: 370 QTc:449 Interpretive Statements SINUS RHYTHM VOLTAGE CRITERIA FOR LVH MODERATE T-WAVE ABNORMALITY, CONSIDER ANTERIOR ISCHEMIA/INJURY/INFARCTION Suggest clinical correlation Abnormal ECG No prior ECG available for comparison Electronically Signed On 04-11-2018 8:14:56 API DEVELOPER by Thierno TORRES Performing Organization Address City/State/Zipcode Phone Number SMS * CT SOFT TISSUE NECK W CONTRAST (04/10/2018 8:23 PM API DEVELOPER) Impressions Performed At IMPRESSION: SMS Edema of [...] Interface, Rad/Mammog In - 04/11/2018 10:23 AM API DEVELOPER EXAM: CT NECK WITH CONTRAST DATE: 04/10/2018 [...] XRAY CHEST 2 VIEWS (04/10/2018 8:18 PM API DEVELOPER) Impressions Performed At IMPRESSION: SMS No acute process in the chest. Marked dextroscoliosis involving the mid thoracic spine. Signed By: Tonya Messina MD, 04/10/2018 8:20 PM Narrative Performed At EXAM: XR CHEST 2 VIEWS [facility] DATE: 04/10/2018 8:19 PM . [...] Interface, Rad/Mammog In - 04/10/2018 8:25 PM API DEVELOPER EXAM: XR CHEST 2 VIEWS DATE: 04/10/2018 [...] SMS * BMP POC (04/10/2018 11:35 AM API DEVELOPER) CO2 POC 31 21 - 32 mmol/L [facility] MAIN-STATION 1 Chloride POC 97 (L) 98 - 107 mmol/L [facility] MAIN-STATION 1 Potassium POC 3.6 3.50 - 5.10 mmol/L [facility] MAIN-STATION 1 Sodium POC 143 136 - 145 mmol/L [facility] MAIN-STATION 1 Glucose POC 108 (H) 74 - 106 mg/dL [facility] MAIN-STATION 1 Urea Nitrogen 11 7 - 18 mg/dL [facility] POC MAIN-STATION 1 Creatinine POC 0.8 0.6 - 1.3 mg/dL [facility] MAIN-STATION 1 Calcium Ionized 1.15 1.15 - 1.29 mmol/L [facility] POC MAIN-STATION 1 Hemoglobin POC 16.3 14.0 - 18.0 g/dL [facility] MAIN-STATION 1 Hematocrit POC 48.0 40.0 - 54.0 % [facility] MAIN-STATION 1 GFR, Estimated >60 mL/min/1.73 m2 [facility] MAIN-STATION 1 GFR, Estim, >60 mL/min/1.73 m2 [facility] Afr-Am MAIN-STATION 1 Performing Organization Address City/State/Zipcode Phone Number MISYS [facility] MAIN-STATION 1 after 08/16/2017 Insurance Type Payer Benefit Subscriber ID Effective Phone Address Plan / Dates Group MEDICARE MEDICARE xxxxxxxxxxx 2017- [phone] [address] Present [id number] [place] [address] (Home) [place] [address] Advance Directives For more information, please contact: [address] [address] Date Inactivated Comments Code Status Date Activated 04/12/2018 12:01 AM Full Code 04/10/2018 5:49 PM
[2018-08-17 11:28] VITALS: BP 132/87
== END | disposition home or self-care (01) ==
LOC: OR 08:58
PROVIDERS: ATTEND Ophthalmology
DX: H25.12 Age-related nuclear cataract, left eye (principal); I10 Essential (primary) hypertension; N40.0 Benign prostatic hyperplasia without lower urinary tract symptoms
CPT/HCPCS: 66984; J2250

== ENCOUNTER → 2019-02-22 | Day surgery (SDC) | payer MEDICARE, OTHER ==
[~2019-02-22] MED LIST changes: +CALAN SR240 MG PO; -FENTANYL CITRATE/PF 100MCG/2 ML INJ ONE; +LIDOCAINE HCL 2% LOCAL INJ 5 ML SDV VIAL INJ ONE; -OR PHACO EYE KIT ONE; -PREOP PHACO EYE KIT ONE; +PROPOFOL IV EMULSION 10 MG/ML 50 ML VIAL ONE
[2019-02-22 10:20] VITALS: BP 130/88
== END | disposition home or self-care (01) ==
LOC: OR 05:21
PROVIDERS: ATTEND Internal Medicine Gastroenterology
DX: Z12.11 Encounter for screening for malignant neoplasm of colon (principal); K57.30 Diverticulosis of large intestine without perforation or abscess without bleeding; K64.8 Other hemorrhoids; R14.0 Abdominal distension (gaseous); I10 Essential (primary) hypertension; N40.0 Benign prostatic hyperplasia without lower urinary tract symptoms; G47.33 Obstructive sleep apnea (adult) (pediatric); Z01.810 Encounter for preprocedural cardiovascular examination; Z68.31 Body mass index [BMI] 31.0-31.9, adult
CPT/HCPCS: 93005; G0121; J2001; J2250; J2704; 45378

== ENCOUNTER → 2019-03-01 | Day surgery (SDC) | payer MEDICARE, OTHER ==
[~2019-03-01] MED LIST changes: +FENTANYL CITRATE/PF 100MCG/2 ML INJ ONE; -LIDOCAINE HCL 2% LOCAL INJ 5 ML SDV VIAL INJ ONE
[2019-03-01 10:20] VITALS: BP 143/93
== END | disposition home or self-care (01) ==
LOC: OR 07:10
PROVIDERS: ATTEND Internal Medicine Gastroenterology
DX: K29.50 Unspecified chronic gastritis without bleeding (principal); K29.80 Duodenitis without bleeding; K21.0 Gastro-esophageal reflux disease with esophagitis; K22.70 Barrett's esophagus without dysplasia; K44.9 Diaphragmatic hernia without obstruction or gangrene; I10 Essential (primary) hypertension; G47.33 Obstructive sleep apnea (adult) (pediatric); R05 Cough; R00.1 Bradycardia, unspecified; Z68.31 Body mass index [BMI] 31.0-31.9, adult
CPT/HCPCS: 43239; 88305; 88312; J2250; J2704; J3010

== ENCOUNTER → 2021-02-26 | Day surgery (SDC) | payer MEDICARE, OTHER ==
[2021-02-22 09:40] LABS: BASOPHILS % 0.5 % (0.0-1.0); EOSINOPHILS # (AUTO) 0.1 (0.0-0.4); EOSINOPHILS % 2.3 % (0.0-6.0); HEMOGLOBIN 13.9 g/dL (14.0-18.0); LYMPHOCYTES # (AUTO) 1.3 (1.0-3.2); LYMPHOCYTES % 30.8 % (18.0-39.1); MEAN CORPUSCULAR HEMOGLOBIN 30.6 pg (28-32); MEAN CORPUSCULAR HGB CONC 31.6 g/dL (31-35); MEAN CORPUSCULAR VOLUME 96.9 fL (81-99); MONOCYTES # (AUTO) 0.4 (0.2-0.8); MONOCYTES % 9.5 % (4.4-11.3); NEUTROPHILS # (AUTO) 2.5 (2.1-6.9); NEUTROPHILS % 56.7 % (38.7-80.0); PLATELET COUNT 190 x10e3/uL (140-360); RED BLOOD COUNT 4.54 x10e6/uL (4.3-5.7); RED CELL DISTRIBUTION WIDTH 14.1 % (11.7-14.4)
[~2021-02-26] MED LIST changes: +ALIGN4 MG PO; +COREG3.125 MG PO; +DOXAZOSIN MESYLA2 MG PO; -FENTANYL CITRATE/PF 100MCG/2 ML INJ ONE; +LIDOCAINE HCL 2% LOCAL INJ 5 ML SDV VIAL INJ ONE; +LIPITOR10 MG PO; -MIDAZOLAM HCL 2 MG/2 ML VIAL ONE; +PANTOPRAZOLE SO40 MG PO; +POTASSIUM CHLO10 ME1 PO; +PROPOFOL IV EMULSION 10 MG/ML 20 ML VIAL ONE; -PROPOFOL IV EMULSION 10 MG/ML 50 ML VIAL ONE
[2021-02-26 14:05] VITALS: BP 127/88
== END | disposition home or self-care (01) ==
LOC: OR 09:25
PROVIDERS: ATTEND Internal Medicine Gastroenterology
DX: K22.70 Barrett's esophagus without dysplasia (principal); K29.50 Unspecified chronic gastritis without bleeding; K44.9 Diaphragmatic hernia without obstruction or gangrene; E73.9 Lactose intolerance, unspecified; E74.10 Disorder of fructose metabolism, unspecified; R89.4 Abnormal immunological findings in specimens from other organs, systems and tissues; G47.33 Obstructive sleep apnea (adult) (pediatric); I10 Essential (primary) hypertension; Z01.810 Encounter for preprocedural cardiovascular examination; Z01.812 Encounter for preprocedural laboratory examination; Z20.822 Contact with and (suspected) exposure to COVID-19; Z68.32 Body mass index [BMI] 32.0-32.9, adult
CPT/HCPCS: 36415; 43239; 85025; 93005; U0002; J2001

== ENCOUNTER → 2023-02-17 | Day surgery (SDC) | payer MEDICARE ==
[2023-02-13 09:24] LABS: BASOPHILS % 0.6 % (0.0-1.0); EOSINOPHILS # (AUTO) 0.2 (0.0-0.4); EOSINOPHILS % 3.4 % (0.0-6.0); HEMATOCRIT 42.2 % (38.2-49.6); HEMOGLOBIN 14.3 g/dL (14.0-18.0); LYMPHOCYTES # (AUTO) 1.2 (1.0-3.2); LYMPHOCYTES % 25.4 % (18.0-39.1); MEAN CORPUSCULAR HEMOGLOBIN 31.2 pg (28-32); MEAN CORPUSCULAR HGB CONC 33.9 g/dL (31-35); MEAN CORPUSCULAR VOLUME 91.9 fL (81-99); MONOCYTES # (AUTO) 0.5 (0.2-0.8); MONOCYTES % 10.4 % (4.4-11.3); NEUTROPHILS # (AUTO) 2.8 (2.1-6.9); PLATELET COUNT 186 x10e3/uL (140-360); RED BLOOD COUNT 4.59 x10e6/uL (4.3-5.7); RED CELL DISTRIBUTION WIDTH 13.8 % (11.7-14.4); WHITE BLOOD COUNT 4.69 x10e3/uL (4.8-10.8)
[~2023-02-17] MED LIST changes: +LACTATED RINGER'S 1,000 ML ONE; +LEVOCETIRIZINE D5 MG PO; +PROPOFOL IV EMULSION 10 MG/ML 50 ML VIAL IV ONE; +TRIAMTERENE-HCTZ1 EA PO
[2023-02-17 14:15] VITALS: BP 134/88; PULSE 82; RESP 14; O2SAT 100
== END | disposition home or self-care (01) ==
LOC: OR 11:55
PROVIDERS: ATTEND Internal Medicine Gastroenterology
DX: K22.70 Barrett's esophagus without dysplasia (principal); K31.7 Polyp of stomach and duodenum; K29.50 Unspecified chronic gastritis without bleeding; K21.9 Gastro-esophageal reflux disease without esophagitis; K44.9 Diaphragmatic hernia without obstruction or gangrene; I10 Essential (primary) hypertension; N40.0 Benign prostatic hyperplasia without lower urinary tract symptoms; E73.9 Lactose intolerance, unspecified; E74.10 Disorder of fructose metabolism, unspecified; R89.4 Abnormal immunological findings in specimens from other organs, systems and tissues; Z01.810 Encounter for preprocedural cardiovascular examination; Z01.812 Encounter for preprocedural laboratory examination; Z79.899 Other long term (current) drug therapy; Z68.32 Body mass index [BMI] 32.0-32.9, adult
CPT/HCPCS: 36415; 43239; 85025; 88305; 88342; 93005; J2001; J2704 ×2; J7121

== ENCOUNTER → 2025-02-07 | Day surgery (SDC) | payer MEDICARE ==
[2025-02-03 09:06] LABS: BASOPHILS % 0.5 % (0.0-1.0); EOSINOPHILS % 4.8 % (0.0-6.0); LYMPHOCYTES % 38.3 % (18.0-39.1); MONOCYTES % 10.3 % (4.4-11.3); NEUTROPHILS % 46.1 % (38.7-80.0); RED CELL DISTRIBUTION WIDTH 13.7 % (11.7-14.4)
[~2025-02-07] MED LIST changes: +ASPIRIN81 MG PO; +FAMOTIDINE20 MG PO; -PROPOFOL IV EMULSION 10 MG/ML 50 ML VIAL IV ONE; +VITAMIN D3 PO
[2025-02-07 09:37] VITALS: TEMP 97.2
[2025-02-07 10:00] VITALS: BP 133/84; PULSE 60; RESP 18; O2SAT 98
== END | disposition home or self-care (01) ==
LOC: OR 06:42
PROVIDERS: ATTEND Internal Medicine Gastroenterology
DX: K31.A11 Gastric intestinal metaplasia without dysplasia, involving the antrum (principal); K44.9 Diaphragmatic hernia without obstruction or gangrene; K29.50 Unspecified chronic gastritis without bleeding; E73.9 Lactose intolerance, unspecified; E74.10 Disorder of fructose metabolism, unspecified; E55.9 Vitamin D deficiency, unspecified; I10 Essential (primary) hypertension; E78.5 Hyperlipidemia, unspecified; G47.30 Sleep apnea, unspecified; N40.0 Benign prostatic hyperplasia without lower urinary tract symptoms; E66.811 Obesity, class 1; Z68.31 Body mass index [BMI] 31.0-31.9, adult; Z79.82 Long term (current) use of aspirin; Z79.890 Hormone replacement therapy; Z79.899 Other long term (current) drug therapy; Z01.810 Encounter for preprocedural cardiovascular examination; Z01.812 Encounter for preprocedural laboratory examination
CPT/HCPCS: 36415; 43239; 85025; 88305; 93005; J2003; J2704; J7121